=== PATIENT | female | born 2000 | race African-American/Black ===

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

== ENCOUNTER 2020-04-19 14:59 | Emergency (ER) | payer OTHER ==
[~2020-04-19] VITALS: Ht 167.6 cm; Wt 73.1 kg
[~2020-04-19 14:59] MED LIST changes: +CEPH-264 PO; +METR500T PO
[2020-04-19 15:44] LABS: BILIRUBIN,URINE NEGATIVE (NEG); CLARITY,URINE CLEAR; COLOR,URINE YELLOW; NITRITE,URINE NEGATIVE (NEG); PH,URINE 8.5 (<5.0-8.0); PROTEIN,URINE NEGATIVE (NEG-TRACE)
--- NOTE | 2020-04-19 15:45 | PHYS DOC ---
Past Medical History Past Medical History: No Pertinent History Past Surgical History: No Surgical History Smoking Status: Never Smoker Alcohol Use: None Drug Use: None General Adult EDM: Chief Complaint: VAGINAL BLEEDING HPI: HPI: Patient is a 19 year old female patient who presents with lower abdominal pain and vaginal bleeding. Patient reports she had been to her primary care office today for some vaginal bleeding, patient reports that she had a urine test at primary care office, and was asked if she had pelvic pain to which she replied yes, and was told to immediately go to the ER. Patient reports she was not told what the findings were from her urinalysis. States she is on control, however has only been on it for the last month. States she has been on her menstrual cycle for the last 2 weeks, states she has continued to have bleeding since that time. Patient denies nausea, vomiting, diarrhea. Does report that she had constipation with a reported bowel obstruction approximately a month ago treated at [facility] with stool softeners. States she has had normal bowel movements today. States she does have some urinary urgency, and feeling like she is unable to completely empty her bladder. Review of Systems: Review of Systems: Constitutional: Denies fever or chills. [] Respiratory: Denies cough or shortness of breath. [] Cardiovascular: Denies chest pain or edema. [] GI: Denies nausea, vomiting, bloody stools or diarrhea. [] : Reports urinary frequency, urgency, hesitancy. Also reports vaginal bleeding with clots for the last 2 weeks and pelvic pain. Denies any concern over STI] Musculoskeletal: Denies back pain or joint pain. [] Integument: Denies rash. [] Neurologic: Denies headache, focal weakness or sensory changes. [] Endocrine: Denies polyuria or polydipsia. [] Lymphatic: Denies swollen glands. [] Psychiatric: Denies depression or anxiety. [] Heart Score: Risk Factors: Risk Factors: DM, Current or recent (<one month) smoker, HTN, HLP, family history of CAD, obesity. Risk Scores: Score 0 - 3: 2.5% MACE over next 6 weeks - Discharge Home Score 4 - 6: 20.3% MACE over next 6 weeks - Admit for Clinical Observation Score 7 - 10: 72.7% MACE over next 6 weeks - Early Invasive Strategies Allergies: Allergies: Allergies Coded Allergies Type Severity Reaction Last Updated Verified red dye Allergy Unknown 08/26/15 Yes Physical Exam: PE: Constitutional: Well developed, well nourished, no acute distress, non-toxic appearance. [] HENT: Normocephalic, atraumatic, , nose normal. [] Eyes: PERRLA, EOMI, conjunctiva normal, no discharge. [] Neck: Normal range of motion, no tenderness, supple, no stridor. [] Cardiovascular:Heart rate regular rhythm, no murmur [] Lungs & Thorax: Bilateral breath sounds clear to auscultation [] Abdomen: Bowel sounds normal, soft, generalized tenderness, worse in lower quadrants and suprapubic, no masses, no pulsatile masses. [] Skin: Warm, dry, no erythema, no rash. [] Back: No tenderness, no CVA tenderness. [] Extremities: No tenderness, no cyanosis, no clubbing, ROM intact, no edema. [] Neurologic: Alert and oriented X 3, normal motor function, normal sensory function, no focal deficits noted. [] Psychologic: Affect normal, judgement normal, mood normal. [] EKG: EKG: [] Radiology/Procedures: Radiology/Procedures: []Findings: The appendix is not well seen however there is a small caliber loop of bowel in the right lower quadrant image #49 which is likely a normal appendix. The uterus and left ovary appear normal. The right ovary isn't seen and likely volume averaged with unopacified loops of bowel. Liver: Unremarkable Spleen: Unremarkable Pancreas: Unremarkable Adrenal Glands: Unremarkable Kidneys: Unremarkable There is no mass or lymphadenopathy. There is no free air. There is no free fluid. The urinary bladder appears normal. Impression: No acute findings. PQRS Compliance Statement: One or more of the following individualized dose reduction techniques were utilized for this examination: 1. Automated exposure control 2. Adjustment of the mA and/or kV according to patient size 3. Use of iterative reconstruction technique Electronically signed by: Prasanna Medeiros III, MD (04/19/2020 5:10 PM) [facility] Course & Med Decision Making: Course & Med Decision Making Pertinent Labs and Imaging studies reviewed. (See chart for details) [] Reviewed imaging and labs, noting no acute findings, small bacteria in urine, however likely contaminated sample. Will provide short course of antibiotics just to ensure there is no bacterial infection in her urine causing her discomfort and hematuria. Believe most discomfort is likely related to her menstrual cycle. Discussed the signs with patient, patient and family in ag reement with this plan, will discharge and patient to follow-up with primary care as needed Jeramie Disclaimer: Jeramie Disclaimer: This electronic medical record was generated, in whole or in part, using a voice recognition dictation system. Departure Departure Impression: Primary Impression: Urinary tract infection Qualified Codes: N30.01 - Acute cystitis with hematuria Additional Impression: Menorrhagia with regular cycle Disposition: HOME, SELF-CARE Condition: STABLE Referrals: NO PCP (PCP) Patient Instructions: Menorrhagia Additional Instructions: As we discussed, make sure you are drinking plenty of fluids. You can take Tylenol or ibuprofen as needed for your discomfort. Make sure you take the antibiotics as prescribed for the entire duration, and even if you start to feel better. Day. Follow-up with your ACTUARY MANAGER or your primary care provider if you continue to have some bleeding to determine if they want to do any further assessment. Scripts Nitrofurantoin Monohyd/M-Cryst (MACROBID 100 MG CAPSULE) 100 Mg Capsule 1 CAP PO BID for 5 Days, #10 CAP 0 Refills Prov: SOCO FAY APRN 04/19/20 Justicifation of Admission Dx: Justifications for Admission: Justification of Admission Dx: N/A SOCO FAY APRN Apr 19, 2020 15:45
[2020-04-19 15:48] LABS: U PREG PATIENT NEGATIVE (NEG)
[2020-04-19 15:49] LABS: SQUAMOUS EPITHELIAL CELL,UR MOD /LPF
[2020-04-19 15:55] LABS: BACTERIA,URINE MODERATE /HPF (0-FEW)
[2020-04-19] MEDS ORDERED: KETOROLAC 30 MG/ML VIAL. IVP ONE (16:15)
[2020-04-19] MEDS ORDERED: ONDANSETRON PF 4 MG/2 ML VIAL. IVP ONE (16:15)
[2020-04-19 16:29] LABS: BASO # 0.1 x10^3/uL (0.0-0.2); BASO % 1 % (0-3); EOS # 0.1 x10^3/uL (0.0-0.7); EOS % 2 % (0-3); HEMATOCRIT 38.2 % (36.0-47.0); HEMOGLOBIN 12.7 g/dL (12.0-15.5); LYMPH # 2.1 x10^3/uL (1.0-4.8); LYMPH % 30 % (24-48); MEAN CORPUSCULAR HEMOGLOBIN 29 pg (25-35); MEAN CORPUSCULAR HGB CONC 33 g/dL (31-37); MEAN CORPUSCULAR VOLUME 86 fL (79-100); MONO # 0.6 x10^3/uL (0.0-1.1); MONO % 8 % (0-9); NEUT # 4.3 x10^3/uL (1.8-7.7); NEUT % 60 % (31-73); PLATELET COUNT 338 x10^3/uL (140-400); RED BLOOD COUNT 4.43 x10^6/uL (3.50-5.40); RED CELL DISTRIBUTION WIDTH 15.4 % (11.5-14.5); WHITE BLOOD COUNT 7.2 x10^3/uL (4.0-11.0)
[2020-04-19 16:41] LABS: CALCIUM 8.7 mg/dL (8.5-10.1); CREATININE 0.9 mg/dL (0.6-1.0); GFR 97.6; POTASSIUM 3.8 mmol/L (3.5-5.1)
[2020-04-19] MEDS ORDERED: CONTRAST GIVEN. MC PRN ×2 (16:45→17:00)
[2020-04-19] MEDS ORDERED: IOHEXOL 300 MG/ML 100ML VIAL. IV ONE ×2 (16:45→17:00)
[2020-04-19 16:47] LABS: ALBUMIN 3.7 g/dL (3.4-5.0); TOTAL BILIRUBIN 0.3 mg/dL (0.2-1.0); TOTAL PROTEIN 7.4 g/dL (6.4-8.2)
--- NOTE | 2020-04-19 17:13 | RAD ---
CT SCAN OF THE ABDOMEN AND PELVIS WITH IV CONTRAST. History: Reason: abdominal pain / Comparison:None. Procedure: Contiguous axial images of the abdomen and pelvis were performed after the administration of 75 cc of Omni 300 IV contrast. Oral contrast: No. Findings: The appendix is not well seen however there is a small caliber loop of bowel in the right lower quadrant image #49 which is likely a normal appendix. The uterus and left ovary appear normal. The right ovary isn't seen and likely volume averaged with unopacified loops of bowel. Liver: Unremarkable Spleen: Unremarkable Pancreas: Unremarkable Adrenal Glands: Unremarkable Kidneys: Unremarkable There is no mass or lymphadenopathy. There is no free air. There is no free fluid. The urinary bladder appears normal. Impression: No acute findings. PQRS Compliance Statement: One or more of the following individualized dose reduction techniques were utilized for this examination: 1. Automated exposure control 2. Adjustment of the mA and/or kV according to patient size 3. Use of iterative reconstruction technique Electronically signed by: Prasanna Medeiros III, MD (04/19/2020 5:10 PM) [facility]
[2020-04-19] MEDS ORDERED: NITR100C62 PO (17:45)
[2020-04-19 18:00] VITALS: BP 120/61
== END 2020-04-19 18:05 | disposition home or self-care (01) ==
LOC: ER 14:59
DX: N30.01 Acute cystitis with hematuria (principal); N92.0 Excessive and frequent menstruation with regular cycle; Z91.041 Radiographic dye allergy status
CPT/HCPCS: 36415; 74177; 80053; 81001; 81025; 85025; 87086; 96374; 96375; 99285; J1885; J2405; Q9967

== ENCOUNTER 2020-05-07 19:51 | Emergency (ER) | payer OTHER ==
[~2020-05-07] VITALS: Ht 167.6 cm; Wt 70.0 kg
[~2020-05-07 19:51] MED LIST changes: +NITR100C62 PO
[2020-05-07 20:29] VITALS: BP 120/64
[2020-05-07] MEDS ORDERED: METH4TAB2 PO (21:10)
[2020-05-07] MEDS ORDERED: DIPH25TA64 PO (21:10)
--- NOTE | 2020-05-07 21:10 | PHYS DOC ---
Past Medical History Past Medical History: No Pertinent History Past Surgical History: No Surgical History Smoking Status: Current Some Day Smoker Alcohol Use: None Drug Use: None General Adult EDM: Chief Complaint: ITCHING HPI: HPI: Patient is a 19 year old female who presents with works with [employer] and does not wear gloves because it "slows her down". Today she broke out in a itchy pink contact dermatitis rash to her right dorsal wrist and hand. No blisters or drainage. Patient states she took Benadryl before coming but it is not working. Denies pain, chest pain, soa, abdominal pain, nausea, vomiting, wheezing, itchy throat, itchy eyes, dizziness, headache. No swelling to face or inner mouth. Review of Systems: Review of Systems: Constitutional: Denies fever or chills. [] Eyes: Denies change in visual acuity. [] HENT: Denies nasal congestion or sore throat. [] Respiratory: Denies cough or shortness of breath. [] Cardiovascular: Denies chest pain or edema. [] GI: Denies abdominal pain, nausea, vomiting, bloody stools or diarrhea. [] : Denies dysuria. [] Musculoskeletal: Denies back pain or joint pain. [] Integument: Left dorsal hand and wrist contact dermatitis pink rash. [] Neurologic: Denies headache, focal weakness or sensory changes. [] Endocrine: Denies polyuria or polydipsia. [] Lymphatic: Denies swollen glands. [] Psychiatric: Denies depression or anxiety. [] Heart Score: Risk Factors: Risk Factors: DM, Current or recent (<one month) smoker, HTN, HLP, family history of CAD, obesity. Risk Scores: Score 0 - 3: 2.5% MACE over next 6 weeks - Discharge Home Score 4 - 6: 20.3% MACE over next 6 weeks - Admit for Clinical Observation Score 7 - 10: 72.7% MACE over next 6 weeks - Early Invasive Strategies Allergies: Allergies: Allergies Coded Allergies Type Severity Reaction Last Updated Verified red dye Allergy Unknown 08/26/15 Yes Physical Exam: PE: Constitutional: Well developed, well nourished, no acute distress, non-toxic appearance. [] HENT: Normocephalic, atraumatic, bilateral external ears normal, oropharynx moist, no oral exudates, nose normal. [] Eyes: PERRLA, EOMI, conjunctiva normal, no discharge. [] Neck: Normal range of motion, no tenderness, supple, no stridor. [] Cardiovascular:Heart rate regular rhythm, no murmur [] Lungs & Thorax: Bilateral breath sounds clear to auscultation [] Abdomen: Bowel sounds normal, soft, no tenderness, no masses, no pulsatile masses. [] Skin: Warm, dry, no erythema, Right dorsal hand and wrist contact dermatitis rash that is pink rash. [] Back: No tenderness, no CVA tenderness. [] Extremities: No tenderness, no cyanosis, no clubbing, ROM intact, no edema. [] Neurologic: Alert and oriented X 3, normal motor function, normal sensory function, no focal deficits noted. [] Psychologic: Affect normal, judgement normal, mood normal. [] Current Patient Data: Vital Signs: Vital Signs Date Time Temp Pulse Resp B/P (MAP) Pulse Ox O2 Delivery O2 Flow Rate FiO2 05/07/20 20:29 98.4 64 18 120/64 (82) 100 Room Air 98.4 EKG: EKG: [] Radiology/Procedures: Radiology/Procedures: [] Course & Med Decision Making: Course & Med Decision Making Pertinent Labs and Imaging studies reviewed. (See chart for details) Speaks in full clear sentences. Uvula midline and nonswollen. See HPI. No edema to the extremity. Skin pink warm and dry. Radial pulse strong. Cap refill less than 3 seconds. [] Dragon Disclaimer: Dragon Disclaimer: This electronic medical record was generated, in whole or in part, using a voice recognition dictation system. Departure Departure Impression: Primary Impression: Contact dermatitis Qualified Codes: L24.9 - Irritant contact dermatitis, unspecified cause Disposition: HOME, SELF-CARE Condition: STABLE Referrals: UNKNOWN PCP NAME (PCP) Patient Instructions: Contact Dermatitis Additional Instructions: Follow-up with primary care. Try to wear gloves or stay away from the irritant that is causing your allergic reaction. Take the Benadryl every 6 hours. Take the dexamethasone steroid pack as prescribed. Scripts Diphenhydramine Hcl (BENADRYL ALLERGY) 25 Mg Tablet 1 TAB PO QHS PRN for ITCHING for 30 Days, #30 TAB 0 Refills Prov: AUGUSTUS ARGUETA EQUINE BREEDER 05/07/20 Methylprednisolone (MEDROL) 4 Mg Tab.ds.pk 1 PKG PO UD, #1 PKG Prov: AUGUSTUS ARGUETA APRN 05/07/20 Justicifation of Admission Dx: Justifications for Admission: Justification of Admission Dx: N/A AUGUSTUS ARGUETA EQUINE BREEDER May 07, 2020 21:10
== END 2020-05-07 21:27 | disposition home or self-care (01) ==
LOC: ER 19:51
DX: L24.9 Irritant contact dermatitis, unspecified cause (principal); F17.200 Nicotine dependence, unspecified, uncomplicated; Z91.041 Radiographic dye allergy status
CPT/HCPCS: 99283

== ENCOUNTER 2021-02-18 21:00 | Emergency (ER) | payer OTHER ==
[~2021-02-18 21:00] MED LIST changes: +DIPH25TA64 PO; +METH4TAB2 PO
== END 2021-02-18 22:22 | disposition left against medical advice (07) ==
LOC: ER 21:00
DX: R10.9 Unspecified abdominal pain (principal); R11.10 Vomiting, unspecified; Z53.21 Procedure and treatment not carried out due to patient leaving prior to being seen by health care provider
CPT/HCPCS: 81025

== ENCOUNTER 2021-03-10 18:00 | Emergency (ER) | payer OTHER ==
[~2021-03-10] VITALS: Ht 167.6 cm; Wt 61.0 kg
[2021-03-10 18:20] VITALS: BP 117/84
[2021-03-10] MEDS ORDERED: NAPROXEN 500 MG TABLET PO STA (18:44)
--- NOTE | 2021-03-10 18:46 | PHYS DOC ---
Past Medical History Past Medical History: No Pertinent History (ANNAJAJA Evangelista MARINE EQUIPMENT DESIGN ENGINEER) Past Surgical History: No Surgical History (ANNAJAJA Evangelista APRN) Smoking Status: Current Some Day Smoker Alcohol Use: None Drug Use: None (JAJA BARRON Binta DUNN) General Adult EDM: Chief Complaint: LOWEREXTREMITY INJURY HPI: HPI: Patient is a 20 year old female who presents today complaining of moderate pain to the left ankle that began prior to coming to the ED. Patient states she made a step and heard a pop sound from the left ankle. Patient unable to bear weight on the left lower extremity due to pain. Denies anything relieving her pain. Describes the pain as sharp and constant (ANNAJAJA Evangelista APRN) Review of Systems: Review of Systems: Constitutional: Denies fever or chills. [] Musculoskeletal: Reports left ankle pain. Denies back pain or joint pain. [] Integument: Denies rash. [] Neurologic: Denies headache, focal weakness or sensory changes. [] Psychiatric: Denies depression or anxiety. [] (BEATRICEJAJA MARINE EQUIPMENT DESIGN ENGINEER) Heart Score: C/O Chest Pain: N/A Risk Factors: Risk Factors: DM, Current or recent (<one month) smoker, HTN, HLP, family history of CAD, obesity. Risk Scores: Score 0 - 3: 2.5% MACE over next 6 weeks - Discharge Home Score 4 - 6: 20.3% MACE over next 6 weeks - Admit for Clinical Observation Score 7 - 10: 72.7% MACE over next 6 weeks - Early Invasive Strategies (JAJA BARRON MARINE EQUIPMENT DESIGN ENGINEER) Allergies: Allergies: Allergies Coded Allergies Type Severity Reaction Last Updated Verified red dye Allergy Unknown 08/26/15 Yes (ANNAJean CarlosJAJA Binta DUNN) Physical Exam: PE: Constitutional: Well developed, well nourished, no acute distress, non-toxic appearance. [] Skin: Warm, dry, no erythema, no rash. [] Back: No tenderness, no CVA tenderness. [] Extremities: Left ankle with soft tissue swelling on the lateral aspect, tenderness on palpation diffusely throughout the ankle. Limited range of motion to the ankle due to pain. +2 left pedal pulse. Cap refill less than 2 seconds to left toes. Sensation intact to the left toes Neurologic: Alert and oriented X 3, normal motor function, normal sensory function, no focal deficits noted. [] Psychologic: Affect normal, judgement normal, mood normal. [] (JAJA BARRON APRN) Current Patient Data: Vital Signs: Vital Signs Date Time Temp Pulse Resp B/P (MAP) Pulse Ox O2 Delivery O2 Flow Rate FiO2 03/10/21 18:20 98.9 78 18 117/84 (95) 97 Room Air 98.9 (JAJA BARRON APRN) EKG: EKG: [] (JAJA BARRON APRN) Radiology/Procedures: Radiology/Procedures: []PROCEDURE: ANKLE LEFT 3V Exam: Left ankle 3 views. INDICATION: Pain TECHNIQUE: Frontal, lateral and oblique views of the left ankle Comparisons: None FINDINGS: Bone mineralization is normal. No acute or healed fractures. Soft tissues are unremarkable. Joint spaces are well-maintained. IMPRESSION: No acute osseous abnormality. Electronically signed by: Elsie Noyola MD (03/10/2021 8:05 PM) [facility] DICTATED and SIGNED BY: ELSIE NOYOLA MD DATE: 03/10/[id number] 0 (JAJA BARRON APRN) Course & Med Decision Making: Course & Med Decision Making Pertinent Labs and Imaging studies reviewed. (See chart for details) This is a 20-year-old female patient presenting to the ED today with left ankle pain that began today. Left ankle x-rays interpreted by radiologist are negative for any acute findings. Aircast applied to the left ankle. Ice elevation encouraged. Follow-up with Ortho in 1 week if pain persists. OTC pain relievers. (JAJA BARRON APRN) Course & Med Decision Making The chart was reviewed. Care and treatment plan made by midlevel provider. I was available for consult. (JEANETTE RAMÍREZ DO) Loraineon Disclaimer: Dragvince Disclaimer: This electronic medical record was generated, in whole or in part, using a voice recognition dictation system. (JAJA BARRON APRN) Departure Departure Impression: Primary Impression: Left ankle sprain Qualified Codes: S93.402A - Sprain of unspecified ligament of left ankle, initial encounter Disposition: HOME / SELF CARE / HOMELESS Condition: STABLE Referrals: SUSANNE RUSSELL MD (PCP) LUIS MORRIS MD follow up in one week Patient Instructions: Ankle Sprain Additional Instructions: You were seen for left ankle pain, your left ankle x-rays are negative for any acute findings. Wear the Aircast provided as tolerated and needed. Try to ice and elevate the extremity. You can take [id number]-cvu-[id number] pain relievers as needed for pain. Come back to the ED if any point symptoms worsen JAJA BARRON APRN Mar 10, 2021 18:46 JEANETTE RAMÍREZ I DO Mar 11, 2021 20:19
[2021-03-10] MEDS ORDERED: HYDROcodone/APAP 5/325MG 1 TAB TABLET PO ONE (19:00)
--- NOTE | 2021-03-10 20:07 | RAD ---
Exam: Left ankle 3 views. INDICATION: Pain TECHNIQUE: Frontal, lateral and oblique views of the left ankle Comparisons: None FINDINGS: Bone mineralization is normal. No acute or healed fractures. Soft tissues are unremarkable. Joint spa daniela are well-maintained. IMPRESSION: No acute osseous abnormality. Electronically signed by: Elsie Cuevas MD (03/10/2021 8:05 PM) RAHUL
== END 2021-03-10 20:42 | disposition home or self-care (01) ==
LOC: ER 18:00
DX: S93.402A Sprain of unspecified ligament of left ankle, initial encounter (principal); F17.200 Nicotine dependence, unspecified, uncomplicated; Z91.041 Radiographic dye allergy status; X50.9XXA Other and unspecified overexertion or strenuous movements or postures, initial encounter; Y93.89 Activity, other specified; Y92.89 Other specified places as the place of occurrence of the external cause; Y99.8 Other external cause status
CPT/HCPCS: 73610; 99283; L4350

== ENCOUNTER 2021-05-19 08:59 | Emergency (ER) | payer OTHER ==
[~2021-05-19] VITALS: Ht 167.6 cm; Wt 68.1 kg
[2021-05-19] MEDS ORDERED: IV NORMAL SALINE 1000ML BAG 1,000 ML IV ONE (09:15)
[2021-05-19] MEDS ORDERED: PYRIDOXINE 100 MG/ML VIAL. IV ONE (09:15)
[2021-05-19] MEDS ORDERED: DEXAMETHASONE SOD PHOS 20 MG/5 ML VIAL. IV ONE (09:15)
[2021-05-19] MEDS ORDERED: METOCLOPRAMIDE HCL 10 MG/2 ML VIAL. IVP ONE (09:15)
--- NOTE | 2021-05-19 09:47 | PHYS DOC ---
Past Medical History Past Medical History: No Pertinent History Past Surgical History: No Surgical History Smoking Status: Never Smoker Alcohol Use: Occasionally Drug Use: None General Adult EDM: Chief Complaint: HEADACHE HPI: HPI: 20 yo , currently presents with increased abdominal pain (waves her right h and in a poarch over her entire abdomen) stating "my stomach hurts." Reports a positive test at [facility] on Thursday but she tested negative for Covid. At that time was having headaches, vomiting at nighttime with food and body aches. States she was up all night due to coughing, nausea and diarrhea. Patient told triage she came to the ED for her headache but denies history of current headache -stating she took her "headache medication" prescribed to her prior to ed arrival-unsure what this medication name is. Review of Systems: Review of Systems: Constitutional: Denies fever or chills. [] Eyes: Denies change in visual acuity. [] HENT: Denies nasal congestion or sore throat. [] Respiratory: Denies hemoptysis or shortness of breath. [] Cardiovascular: Denies chest pain or edema/leg swelling GI: Denies vomiting or bloody stools : Denies dysuria or hematuria or vaginal bleeding Musculoskeletal: Denies back pain or joint pain. [] Integument: Denies rash or diaphoresis Neurologic: Denies headache, focal weakness or sensory changes. [] Endocrine: Denies polyuria or polydipsia. [] Lymphatic: Denies swollen glands. [] Psychiatric: Denies depression or anxiety. [] Heart Score: C/O Chest Pain: No Risk Factors: Risk Factors: DM, Current or recent (<one month) smoker, HTN, HLP, family history of CAD, obesity. Risk Scores: Score 0 - 3: 2.5% MACE over next 6 weeks - Discharge Home Score 4 - 6: 20.3% MACE over next 6 weeks - Admit for Clinical Observation Score 7 - 10: 72.7% MACE over next 6 weeks - Early Invasive Strategies Current Medications: Current Medications Medications (Trade) Dose Ordered Sig/Augustine Start Time Stop Time Status Last Admin Dose Admin Dexamethasone Sodium Phosphate (Decadron) 10 mg 1X ONCE 05/19/21 09:15 05/19/21 09:17 DC Metoclopramide HCl (Reglan Vial) 10 mg 1X ONCE 05/19/21 09:15 05/19/21 09:17 DC Pyridoxine HCl (Vitamin B6) 100 mg 1X ONCE 05/19/21 09:15 05/19/21 09:17 DC Sodium Chloride 1,000 ml @ 1,000 mls/hr 1X ONCE 05/19/21 09:15 05/19/21 10:14 Allergies: Allergies: Allergies Coded Allergies Type Severity Reaction Last Updated Verified red dye Allergy Unknown 08/26/15 Yes Physical Exam: PE: Constitutional: Well developed, well nourished, no acute distress, non-toxic appearance. HENT: Normocephalic, atraumatic, Eyes: EOMI, conjunctiva normal, no discharge. Neck: Normal range of motion, supple, Cardiovascular: S1/2 present, regular rhythm Lungs & Thorax: Speaking in full sentences, bilateral equal chest rise, no tachypnea or increased work of breathing Abdomen: soft, no reproducible tenderness, no McBurney's point tenderness, no right upper quadrant pain, no rigidity or guarding, on exam reports pain in in pelvic location - not RLQ or LLQ Skin: Warm, dry, no erythema, no rash. [] Back: No tenderness, no CVA tenderness. [] Extremities: No tenderness, no cyanosis, no lower extremity edema Neurologic: Alert and oriented X 3, normal motor function, normal sensory function, no focal deficits noted. [] Psychologic: Affect normal, judgement normal, mood normal. [] Pelvic: declined by pt Current Patient Data: Labs: Laboratory Tests Test 05/19/21 09:15 POC Urine HCG, Qualitative Hcg positive (Negative) Vital Signs: Vital Signs Date Time Temp Pulse Resp B/P (MAP) Pulse Ox O2 Delivery O2 Flow Rate FiO2 05/19/21 09:12 98.8 75 18 135/74 (95) 98 Room Air 98.8 EKG: EKG: [] Radiology/Procedures: Radiology/Procedures: IMAGING REPORT Signed PATIENT: RAF HINES ACCOUNT: [id number] : 2000 LOCATION: ER AGE: 20 SEX: F EXAM STATUS: REG ER ORD. PHYSICIAN: CORNELIA TAN DO REASON: headache, nausea, cough, early pregn, r/o ectopic PROCEDURE: OB <14 WKS W/TV US OB <14 WKS +TV DATE: 05/19/2021 10:26 AM INDICATION: headache, nausea, cough, early pregn, r/o ectopic. LMP 04/29/2021 COMPARISON: None. TECHNIQUE: Transvaginal ultrasonography of the pelvis was performed. Color Doppler and duplex were utilized as appropriate. FINDINGS: The uterus measures 7.9 x 5.2 x 4.8 cm. There is living intrauterine gestation with heart rate of 111 beats per minute. There is small yolk sac present. Gestational sac is normal in morphology. No perigestational fluid. [place]-rump length measurement of 0.4 cm corresponds with estimated ultrasound gestational age of 6 weeks and 1 days. LEE by ultrasound 01/11/2022. There is no free pelvic fluid. The right ovary measures 3.5 x 3.4 x 1.9 cm. The left ovary measures 4.1 x 3.2 x 2.4 cm. No evidence of ovarian torsion. There is normal blood flow to both ovaries by color Doppler with arterial and venous waveforms detected. Bilateral renal cysts. IMPRESSION: 1. Single living intrauterine gestation. 2. [place]-rump length corresponds with estimated ultrasound gestational age of 6 weeks and 1 days, for LEE 01/11/2022. Electronically signed by: Delfino Gill MD (05/19/2021 11:39 AM) [facility] DICTATED and SIGNED BY: DELFINO GILL MD DATE: 05/19/21 [id number] Course & Med Decision Making: Course & Med Decision Making Pertinent Labs and Imaging studies reviewed. (See chart for details) COVID-19 CRITERIA: The patient was evaluated during the global COVID-19 pa [facility], and that diagnosis was suspected/considered upon their initial presentation. Their evaluation, treatment and testing was consistent with current guidelines for patients who present with complaints or symptoms that may be related to COVID-19. Concern for abdominal pain in . Patient changes her chief complaint in the ed. I suspect patient was wanting an ultrasound to make sure her was normal. On evaluation patient with no further abdominal pain or recurrent headache (denied headache to myself). Patient's blood type is O-. No UTI. Labs including lipase is unremarkable with normal appearing first trimester . Is tolerating food and drink. Will discharge home with strict ED return precautions were given for vaginal bleeding, abdominal or back pain, fever or UTI symptoms. Encouraged urgent outpatient follow-up with PMD and BRIDGE [facility]ENER. Life-threatening processes were considered but are low suspicion at this time, given history, physical exam and ED workup. Pt was educated on all prescription medications and adverse effects. All patient's questions were answered and pt was stable at time of discharge. Life/limb-threatening differential includes but is not limited to, ectopic , septic , sepsis/infection (endometritis, sti/pid, cystitis, pyelonephritis, Jeff's gangrene or necrotizing fasciitis, abscess), ovarian torsion, ruptured hemorrhagic ovarian cyst, endometriosis, ureterolithiasis, thrombophlebitis, hemorrhage/DIC, organ prolapse, abdominal aortic aneurysm, mesenteric ischemia, neoplasm, bowel obstruction or surgical abdomen. I have spoken with the patient and/or caregivers. I explained the patient's condition, diagnoses and treatment plan based on the information available to me at this time. I have answered the patient and/or caregiver's questions and addressed any concerns. The patient and/or caregivers have a good understanding of patient's diagnosis, condition and treatment plan as can be expected at this point. Vital signs have been stable. Patient's condition is stable and appropriate for discharge from the emergency department. Patient will pursue further outpatient evaluation with primary care physician or other designated or consulting physician as outlined in the discharge i nstructions. The patient and/or caregivers are agreeable to this plan of care and follow-up instructions have been explained in detail. The patient and/or caregivers have received these instructions in written form and have expressed an understanding of the discharge instructions. The patient and/or caregivers are aware that any significant change of condition or worsening of symptoms should prompt immediate return to this or the closest emergency department or call to 911. Jeramie Disclaimer: Jeramie Disclaimer: This electronic medical record was generated, in whole or in part, using a voice recognition dictation system. Departure Departure Impression: Primary Impression: Abdominal pain during in first trimester Additional Impression: Person under investigation for COVID-19 Disposition: HOME / SELF CARE / HOMELESS Condition: STABLE Referrals: SUSANNE RUSSELL MD (PCP) Follow-up with your primary care physician in 24 to 48 hours OR FOLLOW UP WITH FAMILY MEDICINE: [address], [address] [place] [address] Patient Instructions: Abdominal Pain During Additional Instructions: Return to ED immediately if your oxygen level drops below 90% (purchase a pulse oximetry at a medical supply store), difficulties breathing including rapid breathing or increased work of breathing (skin sucking under ribs), chest pain or stroke-like symptoms (facial droop, speech changes, arm/leg weakness). FOLLOW UP WITH BRIDGE OPENER: FOR [facility] MANAGEMENT of [facility] [address], [address] [place] [address] You have been tested for or diagnosed with COVID-19. It is an infection caused by a new type of coronavirus. COVID-19 will cause cold-like or mild flu symptoms in most. It can cause more severe symptoms like problems breathing in some. There is no treatment for COVID-19. The body will clear the infection over time. Self-care will help to ease discomfort. Steps to Take: Self-Care Rest as needed. Healthy habits may help you feel better. Steps include: Choose healthy foods including fruits and vegetables. Drink water throughout the day. Get plenty of sleep each night. If you smoke, try to quit. It may ease breathing. Avoid alcohol. Keep Others Healthy The virus can spread to others. Droplets are released every time you sneeze or cough. The droplets can get into the mouth, nose, or eyes of people near you and lead to infection. To lower the chances of spreading COVID-19 to others: Stay at home until your doctor has said it is safe to leave. If you tested positive this will mean staying isolated until both of the following are true: At least 7 days have passed since the start of illness. You are free of fever for at least 72 hours without the use of medicine. During this time: - Avoid public areas, events, or transportation. Do not return to work or school until your doctor has said it is safe to do so. - Call ahead if you need to go to a medical center. Let them know you may have COVID-19. It will help them guide you where to go. They may also ask you to wear a facemask when you come to the office. - If you call for emergency medical services, let them know you may have COVID- 19. While at home: - Try to avoid close contact with others. Stay about 6 feet away. - If possible, spend most of your time in a separate room from others. - Use a face mask if you will be in close contact with others such as sharing a room or vehicle. - Have someone wipe down common surfaces in the home. Use household sap crm developer every day on areas like doorknobs, counters, or sinks. - Cough or sneeze into a tissue. Throw the tissue away right after use. If a tissue is not available, cough or sneeze into your elbow. - Wash your hands often. Wash them after sneezing or coughing. Use soap and water and wash for at least 20 seconds. Alcohol based hand cotton cleaner can be used if soap and water is not available. - Do not prepare food for others. Avoid sharing personal items like forks, spoons, or toothbrushes. - Avoid close contact with pets while you are sick. There is no evidence of the virus passing to pets. This is a safety step until more is known about this virus. Isolation can be frustrating. Social interaction can help. Keep in touch with friends and family through phone and tech options. You can still interact with others in your home, just keep a safe distance of about 6 feet. Follow-up: Your doctors office will check in with you to see if there are any changes in your health. You may be asked to keep track of symptoms to share with them. They will also let you know when you are clear to be in public again. Problems to Look Out For: Contact your doctor if your recovery is not going as you expect. Get emergency care if you have problems such as: - Trouble breathing - Nonstop chest pain or pressure - Changes in awareness, confusion, or problems waking - Lips or face have bluish color - Worsening of symptoms If you think you have an emergency, call for emergency medical services right away. As taken from [facility] Script[facility] Multivitamin With Folic Acid (GNP ONE DAILY ESSENTIAL TABLET) 400 Mcg Tablet 1 TAB PO DAILY for 30 Days, #30 TAB 0 Refills Prov: CORNELIA TAN DO 05/19/21 CORNELIA TAN DO May 19, 2021 09:47
[2021-05-19 09:50] LABS: BACTERIA,URINE 0 /HPF (0-FEW); BILIRUBIN,URINE NEGATIVE (NEG); CLARITY,URINE CLEAR; COLOR,URINE YELLOW; NITRITE,URINE NEGATIVE (NEG); PROTEIN,URINE NEGATIVE (NEG-TRACE); RBC,URINE 0 /HPF (0-2); WBC,URINE 0 /HPF (0-4)
[2021-05-19 10:04] LABS: BASO # 0.1 x10^3/uL (0.0-0.2); BASO % 1 % (0-3); EOS # 0.1 x10^3/uL (0.0-0.7); EOS % 1 % (0-3); HEMOGLOBIN 13.6 g/dL (12.0-15.5); LYMPH # 2.5 x10^3/uL (1.0-4.8); LYMPH % 29 % (24-48); MEAN CORPUSCULAR HEMOGLOBIN 31 pg (25-35); MEAN CORPUSCULAR HGB CONC 35 g/dL (31-37); MEAN CORPUSCULAR VOLUME 88 fL (79-100); MONO # 0.6 x10^3/uL (0.0-1.1); MONO % 7 % (0-9); NEUT # 5.2 x10^3/uL (1.8-7.7); NEUT % 62 % (31-73); PLATELET COUNT 260 x10^3/uL (140-400); RED BLOOD COUNT 4.44 x10^6/uL (3.50-5.40); WHITE BLOOD COUNT 8.5 x10^3/uL (4.0-11.0)
[2021-05-19 10:27] LABS: CALCIUM 9.1 mg/dL (8.5-10.1); CREATININE 0.7 mg/dL (0.6-1.0); GFR 129.1; POTASSIUM 3.9 mmol/L (3.5-5.1)
[2021-05-19 10:34] LABS: ALBUMIN 3.7 g/dL (3.4-5.0); ALBUMIN/GLOBULIN RATIO 1.1 (1.0-1.7); TOTAL BILIRUBIN 0.4 mg/dL (0.2-1.0); TOTAL PROTEIN 7.1 g/dL (6.4-8.2)
--- NOTE | 2021-05-19 11:41 | RAD ---
US OB <14 WKS +TV DATE: 05/19/2021 10:26 AM INDICATION: headache, nausea, cough, early pregn, r/o ectopic. LMP 04/29/2021 COMPARISON: None. TECHNIQUE: Transvaginal ultrasonography of the pelvis was performed. Color Doppler and duplex were ut ilized as appropriate. FINDINGS: The uterus measures 7.9 x 5.2 x 4.8 cm. There is living intrauterine gestation with heart rate of 111 beats per minute. There is small yolk s ac present. Gestational sac is normal in morphology. No perigestational fluid. [place]-rump length measurement of 0.4 cm corresponds with estimated ultrasound gestational age of 6 we eks and 1 days. LEE by ultrasound 01/11/2022. There is no free pelvic fluid. The right ovary measures 3.5 x 3.4 x 1.9 cm. The left ovary measures 4.1 x 3.2 x 2.4 cm. No evidence of ovarian torsion. There is normal blood flow to both ovaries by color Doppler with arterial and veronica ous waveforms detected. Bilateral renal cysts. IMPRESSION: 1. Single living intrauterine gestation. 2. [place]-rump length corresponds with estimated ultrasound gestational age of 6 weeks and 1 days, for LEE 01/11/2022. Electronically signed by: Diogo Gill MD (05/19/2021 11:39 AM) [facility]
[2021-05-19] MEDS ORDERED: MULT400T8 PO (13:04)
[2021-05-19 13:45] VITALS: BP 113/62
--- NOTE | 2021-05-20 16:29 | NUR ---
IP: Informed pt of negative covid test. pt verbalized understanding.
== END 2021-05-19 13:50 | disposition home or self-care (01) ==
LOC: ER 08:59
DX: O26.891 Other specified pregnancy related conditions, first trimester (principal); R10.9 Unspecified abdominal pain; Z20.822 Contact with and (suspected) exposure to COVID-19; Z3A.01 Less than 8 weeks gestation of pregnancy
CPT/HCPCS: 36415; 76801; 76817; 80053; 81001; 81025; 83690; 84702; 85025; 86850; 86900; 86901; 96361; 96374; 96375; 99285; J1100; J2765; J3415; J7030; U0003; U0005

== ENCOUNTER 2021-12-22 13:50 | Observation (INO) | payer OTHER ==
[~2021-12-22 13:50] MED LIST changes: +MULT400T8 PO
[2021-12-22] MEDS ORDERED: IV RINGERS,LACTATED 1000ML 1,000 ML IV SCH (15:45)
[2021-12-22 15:58] LABS: BACTERIA,URINE MODERATE /HPF (0-FEW)
== END 2021-12-22 17:08 | disposition home or self-care (01) ==
LOC: 3 SO LND 13:50
PROVIDERS: ADMIT Obstetrics & Gynecology; ATTEND Obstetrics & Gynecology
DX: O62.9 Abnormality of forces of labor, unspecified (principal); Z3A.37 37 weeks gestation of pregnancy; Z79.899 Other long term (current) drug therapy
CPT/HCPCS: 59025; 81001; 87086; G0378; G0379